=== PATIENT | female | born 1945 | race Caucasian/White ===

== ENCOUNTER → 2016-05-14 | Outpatient (CLI) | payer OTHER ==
[~2016-05-14] MED LIST: BACITRACIN30 GM TOP; BP PILL; CELEXA PO; DIOVAN PO; FOSAMAX70 MG PO; IBUPROFEN800 MG PO; LEVOTHYROXINE25 MCG PO; LOSARTAN POTASS50 MG PO; NASAL SPRAY; SYNTHROID PO; ZYRTEC PO
--- NOTE | ~2016-05-14 | MY11 ---
[facility] A Service [facility] RADIOLOGY TEXT RESULTS PATIENT: DYLON STANTON LOCATION: [facility] : 43 UNIT #: [id number] AGE: [address]: Bisi Romero MD SEX: F ORDER DR: [id number] [facility]. [place], [place] [address] [id number] O MR#: [id number] Acc #: [id number] NAME: DYLON STANTON. : 1945 SEX: F STUDY DATE/TIME: 05/14/2016 16:27 UNIT: [facility] ROOM: STUDY DESCRIPTION: MY Mammogram Screening Dig Bassem Attending Physician: Bisi Romero M.D. Ordering Physician: Bisi Romero M.D. Primary Care Physician: Bisi Romero M.D. MEDICAL IMAGING REPORT This report is preliminary unless electronic signature is present EXAM Bilateral digital screening with CAD. HISTORY Routine screening. No current complaints. No family history of breast cancer. COMPARISON 08/12/2014, 06/24/2013, 08/06/2011. FINDINGS MLO and CC views of each breast were obtained as well as exaggerated lateral CC views of each breast. Breasts are heterogenously dense. There are no masses or abnormal calcifications. There is a possible area of new density in the medial left breast on the CC view. This is about 1 cm area of irregular density. I do not see any correlate on the MLO view but this density is seen on the 3 CC and exaggerated lateral CC views done today and is not clearly visible on any of the prior studies. IMPRESSION 1. There may be some developing medial density in the left breast. Additional imaging including spot compression views and a straight lateral view and ultrasound are recommended. 2. The right breast is stable. Patient's over the age of 40 are entered into a reminder system with target due date for the next mammogram. BIRADS: 0 Incomplete; Need additional imaging evaluation and/or prior mammograms for comparison. Dictated by... [facility] A Service [facility] RADIOLOGY TEXT RESULTS PATIENT: DYL[facility] STANTON [id number] : 43 UNIT #: [id number] AGE: [address]: Bisi Romero MD SEX: F ORDER DR: Darryn Gunderson M.D. THIS IS AN ELECTRONICALLY VERIFIED REPORT Darryn Gunderson M.D. at 05/15/2016 11:59 AM SHAWANDA/hayde TD: 05/15/2016 11:34 JOB #: [id number] MEDICAL IMAGING REPORT COPY
== END | disposition home or self-care (01) ==
LOC: CWCC 16:09
DX: Z12.31 Encounter for screening mammogram for malignant neoplasm of breast (principal); R92.8 Other abnormal and inconclusive findings on diagnostic imaging of breast
CPT/HCPCS: G0202

== ENCOUNTER → 2016-06-05 | Outpatient (CLI) | payer OTHER ==
--- NOTE | ~2016-06-05 | MY7 ---
[facility] A Service [facility] RADIOLOGY TEXT RESULTS PATIENT: DYLON STANTON LOCATION: [facility] : 43 UNIT #: [id number] AGE: [address]: Bisi Romero MD SEX: F ORDER DR: [id number] [facility]. [place], [place] [address] [id number] O MR#: [id number] Acc #: [id number] NAME: DYLON STANTON : 1945 SEX: F STUDY DATE/TIME: 06/05/2016 12:36 UNIT: [facility] ROOM: STUDY DESCRIPTION: MY Mammogram Dx Dig Lt Attending Physician: Bisi Romero M.D. Referring Physician: Bisi Romero M.D. Ordering Physician: Bisi Romero M.D. Primary Care Physician: Bisi Romero M.D. MEDICAL IMAGING REPORT This report is preliminary unless electronic signature is present EXAM Left digital diagnostic mammogram INDICATIONS Asymmetry in the medial left breast on screening mammogram. PROCEDURE True lateral view of the left breast, spot compression views of the left breast in the CC projection. COMPARISON Screening mammogram, 05/14/2016 FINDINGS There is no persistent mass in the posterior medial left breast. IMPRESSION Negative left diagnostic mammogram. Recommend patient continue with yearly screening. Patients over the age of 40 are entered into a reminder system with target due date for the next mammogram. A result letter will also be sent to the patient. BIRADS: 1 Negative Dictated by... Anthony Trinh M.D. THIS IS AN ELECTRONICALLY VERIFIED REPORT Anthony Trinh M.D. at 06/06/2016 9:39 AM PHILLIP/elisabeth [facility] A [facility] RADIOLOGY TEXT RESULTS PATIENT: DYLON STANTON LOCATION: [facility] : 43 UNIT #: [id number] AGE: [address]: Bisi Romero MD SEX: F ORDER DR: TD: 06/05/2016 13:16 JOB #: [id number] MEDICAL IMAGING REPORT Page 1 of 1 COPY
== END | disposition home or self-care (01) ==
LOC: CMAM 11:53
DX: R92.8 Other abnormal and inconclusive findings on diagnostic imaging of breast (principal)
CPT/HCPCS: G0206